=== PATIENT | male | born 1945 | race Caucasian/White ===

== ENCOUNTER 2016-08-09 13:39 | Day surgery (SDC) | payer MEDICARE, OTHER | END 2016-08-09 16:00 | disposition short-term general hospital (02) | LOC: SURGOP 13:39 | PROC: 0TJB8ZZ Inspection of Bladder, Via Natural or Artificial Opening Endoscopic (ICD-10-PCS; principal; 2016-08-09) | DX: C67.9 Malignant neoplasm of bladder, unspecified (principal); R31.0 Gross hematuria ==

== ENCOUNTER → 2016-08-11 | Outpatient (CLI) | payer MEDICARE, OTHER ==
[~2016-08-11] MED LIST: ASPIRIN81 MG PO; CLARITIN10 MG PO; LOPRESSOR25 MG PO; PROTONIX40 MG PO; SYNTHROID100 MCG PO
== END | disposition short-term general hospital (02) ==
LOC: CLCARD 10:56
DX: R07.89 Other chest pain (principal); I10 Essential (primary) hypertension; R94.31 Abnormal electrocardiogram [ECG] [EKG]; I25.2 Old myocardial infarction; C67.9 Malignant neoplasm of bladder, unspecified; Z79.82 Long term (current) use of aspirin; Z79.899 Other long term (current) drug therapy

== ENCOUNTER 2016-09-12 02:08 | Emergency (ER) | payer MEDICARE, OTHER ==
[~2016-09-12] VITALS: Ht 170.2 cm; Wt 101.1 kg
[2016-09-12] MEDS ORDERED: SYNTHROID100 MCG PO (03:02)
[2016-09-12] MEDS ORDERED: PROTONIX40 MG PO (03:02)
[2016-09-12] MEDS ORDERED: LOPRESSOR25 MG PO (03:04)
[2016-09-12] MEDS ORDERED: ASPIRIN81 MG PO (03:06)
[2016-09-12] MEDS ORDERED: CLARITIN10 MG PO (03:08)
== END 2016-09-12 05:33 | disposition short-term general hospital (02) ==
LOC: ER 02:08
DX: I26.99 Other pulmonary embolism without acute cor pulmonale (principal); K21.9 Gastro-esophageal reflux disease without esophagitis; E78.5 Hyperlipidemia, unspecified; E03.9 Hypothyroidism, unspecified; I25.10 Atherosclerotic heart disease of native coronary artery without angina pectoris; Z79.82 Long term (current) use of aspirin; Z79.899 Other long term (current) drug therapy; Z87.891 Personal history of nicotine dependence; Z98.890 Other specified postprocedural states
CPT/HCPCS: J1644; Q9967

== ENCOUNTER → 2016-11-10 | Outpatient (CLI) | payer MEDICARE, OTHER | END | disposition short-term general hospital (02) | LOC: CLCARD 08:08 | DX: I25.10 Atherosclerotic heart disease of native coronary artery without angina pectoris (principal); I25.2 Old myocardial infarction; I45.10 Unspecified right bundle-branch block; I10 Essential (primary) hypertension; R31.9 Hematuria, unspecified; Z85.51 Personal history of malignant neoplasm of bladder; Z86.711 Personal history of pulmonary embolism; Z90.6 Acquired absence of other parts of urinary tract; Z98.890 Other specified postprocedural states ==